=== PATIENT | female | born 2000 | race African-American/Black ===

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

== ENCOUNTER 2021-02-28 14:43 | Emergency (ER) | payer MEDICAID, OTHER ==
[2021-02-28] MEDS ORDERED: Bacitracin 1 PK ONE (14:54)
== END 2021-02-28 15:15 | disposition home or self-care (01) ==
LOC: MADERS 14:43
DX: S61.011A Laceration without foreign body of right thumb without damage to nail, initial encounter (principal); W45.8XXA Other foreign body or object entering through skin, initial encounter
CPT/HCPCS: 99282

== ENCOUNTER 2021-07-17 19:09 | Emergency (ER) | payer OTHER ==
[2021-07-17] MEDS ORDERED: Ondansetron ODT 4 MG TAB ONE (19:36)
[2021-07-17 20:00] LABS: Pregnancy Test - Urine (BHCG) Negative (Negative); Pregu Control Background? CLEAR/WHITE (CLR/WHITE); Pregu Control Bar Appear? YES (CONTROL BAR); Specific Gravity 1.018 (1.002-1.036)
== END 2021-07-17 20:15 | disposition home or self-care (01) ==
LOC: MADERS 19:09
DX: R11.2 Nausea with vomiting, unspecified (principal); R10.13 Epigastric pain
CPT/HCPCS: 81025; 99284; Q0162

== ENCOUNTER 2022-05-21 19:52 | Emergency (ER) | payer OTHER ==
[2022-05-21] MEDS ORDERED: Ibuprofen 600 MG TAB ONE (21:23)
[2022-05-21] MEDS ORDERED: traMADol HCl 50 MG TAB ONE (21:23)
== END 2022-05-21 22:29 | disposition home or self-care (01) ==
LOC: MADERS 19:52
DX: U07.1 COVID-19 (principal)
CPT/HCPCS: 99284; U0003; U0005

== ENCOUNTER 2023-08-04 12:18 | Emergency (ER) | payer OTHER ==
[2023-08-04 12:44] LABS: Bilirubin Negative (Negative); Blood, Urine Negative (Negative); Clarity Clear (Clear); Glucose, Urine (Dipstick) Negative (Negative); Ketone, Urine Negative (Negative); Leukocyte Negative (Negative); Nitrite Negative (Negative); Protein, Urine (Dipstick) Negative (Neg-Trace); Urobilinogen 0.2 mg/dL (Less than 2)
[2023-08-04 12:48] LABS: Pregnancy Test - Urine (BHCG) Negative (Negative); Pregu Control Background? CLEAR/WHITE (CLR/WHITE); Pregu Control Bar Appear? YES (CONTROL BAR); Specific Gravity 1.024 (1.002-1.036)
[2023-08-04 12:49] LABS: Specific Gravity, Urine 1.024 (1.002-1.036)
[2023-08-04 12:57] LABS: Bacteria/HPF Rare-Few HPF (None Seen); CAUTI Indications for Culture Dysuria,urgency,freq; Mucous/LPF 1+ LPF (<2+); RBC/HPF None Seen HPF (0-3); Urine Culture Reflex No No; WBC/HPF 0-3 HPF (0-3)
[2023-08-04] MEDS ORDERED: Lidocaine 1% (PF) 30 ML VIAL ONE (12:57)
[2023-08-04] MEDS ORDERED: cefTRIAXone (ROCEPHIN) 500 MG VIAL ONE (12:58)
[2023-08-05 13:53] LABS: Chlam.trachomatis by PCR,Urine DETECTED (NotDetected); GC N.gonorrhoeae PCR,UrineVOID Not Detected (NotDetected)
== END 2023-08-04 13:40 | disposition home or self-care (01) ==
LOC: MADERS 12:18
DX: N93.9 Abnormal uterine and vaginal bleeding, unspecified (principal); F17.290 Nicotine dependence, other tobacco product, uncomplicated
CPT/HCPCS: 81001; 81025; 87491; 87591; 99283; J0696; J2001

== ENCOUNTER 2023-09-25 08:13 | Emergency (ER) | payer OTHER, SELFPAY ==
[2023-09-25 08:34] LABS: Bilirubin Negative (Negative); Blood, Urine Negative (Negative); Clarity Clear (Clear); Glucose, Urine (Dipstick) Negative (Negative); Ketone, Urine Negative (Negative); Leukocyte Negative (Negative); Nitrite Negative (Negative); Protein, Urine (Dipstick) Negative (Neg-Trace); Specific Gravity, Urine 1.025 (1.005-1.030); Urobilinogen 0.2 mg/dL (Less than 2)
[2023-09-25 08:37] LABS: Pregnancy Test - Urine (BHCG) Negative (Negative); Pregu Control Background? CLEAR/WHITE (CLR/WHITE); Pregu Control Bar Appear? YES (CONTROL BAR); Specific Gravity 1.025 (1.002-1.036)
[2023-09-25 08:42] LABS: RBC/HPF 0-3 HPF (0-3)
[2023-09-25 08:43] LABS: Bacteria/HPF Rare-Few HPF (None Seen); CAUTI Indications for Culture Dysuria,urgency,freq; Squamous Epithelial 0-3 HPF (0-3); Urine Culture Reflex No No; WBC/HPF 0-3 HPF (0-3)
[2023-09-26 12:14] LABS: Chlamydia by PCR, Vaginal Swab Not Detected (NotDetected); GC by PCR, Vaginal Swab Not Detected (NotDetected)
== END 2023-09-25 09:15 | disposition home or self-care (01) ==
LOC: MADERS 08:13
DX: N89.8 Other specified noninflammatory disorders of vagina (principal); F17.210 Nicotine dependence, cigarettes, uncomplicated
CPT/HCPCS: 81001; 81025; 87480; 87491; 87510; 87591; 87660; 99283

== ENCOUNTER 2023-10-19 12:19 | Emergency (ER) | payer SELFPAY ==
[2023-10-19] MEDS ORDERED: Ondansetron ODT 4 MG TAB ONE (13:50)
[2023-10-19 13:58] LABS: Pregnancy Test - Urine (BHCG) Negative (Negative); Pregu Control Background? CLEAR/WHITE (CLR/WHITE); Pregu Control Bar Appear? YES (CONTROL BAR); Specific Gravity 1.025 (1.002-1.036)
[2023-10-19] MEDS ORDERED: Mag-Al Plus 1200 MG/1200 MG/120 MG/30 ML UDCUP ONE (14:20)
[2023-10-19] MEDS ORDERED: Lidocaine 2% Viscous 100 ML BOTTLE ONE (14:21)
== END 2023-10-19 14:58 | disposition home or self-care (01) ==
LOC: MADERS 12:19
DX: R11.2 Nausea with vomiting, unspecified (principal); K29.00 Acute gastritis without bleeding; F17.210 Nicotine dependence, cigarettes, uncomplicated
CPT/HCPCS: 81025; 99283; Q0162

== ENCOUNTER 2024-06-21 12:14 | Emergency (ER) | payer SELFPAY ==
[2024-06-21 13:00] LABS: Pregnancy Test - Urine (BHCG) POSITIVE (Negative); Pregu Control Background? CLEAR/WHITE (CLR/WHITE); Pregu Control Bar Appear? YES (CONTROL BAR); Specific Gravity 1.025 (1.002-1.036)
[2024-06-21 13:01] LABS: Bilirubin Negative (Negative); Blood, Urine Negative (Negative); Clarity Clear (Clear); Glucose, Urine (Dipstick) Negative (Negative); Ketone, Urine Trace mg/dL (Negative); Leukocyte Negative (Negative); Nitrite Negative (Negative); Protein, Urine (Dipstick) Negative (Neg-Trace); Specific Gravity, Urine 1.025 (1.005-1.030)
[2024-06-21 13:09] LABS: Bacteria/HPF Rare-Few HPF (None Seen); CAUTI Indications for Culture Dysuria,urgency,freq; Mucous/LPF 1+ LPF (<2+); RBC/HPF None Seen HPF (0-3); Urine Culture Reflex No No
[2024-06-22 20:52] LABS: Chlamydia by PCR, Vaginal Swab DETECTED (NotDetected); GC by PCR, Vaginal Swab Not Detected (NotDetected); Tric.vaginalis PCR,Vaginal Sw Not Detected (NotDetected)
== END 2024-06-21 13:43 | disposition home or self-care (01) ==
LOC: MADERS 12:14
DX: O20.9 Hemorrhage in early pregnancy, unspecified (principal); O99.331 Smoking (tobacco) complicating pregnancy, first trimester; Z3A.00 Weeks of gestation of pregnancy not specified
CPT/HCPCS: 81001; 81025; 87480; 87491; 87510; 87591; 87660; 87661; 99283

== ENCOUNTER 2024-07-15 18:39 | Emergency (ER) | payer OTHER, SELFPAY ==
[2024-07-15] MEDS ORDERED: Acetaminophen 500 MG TAB ONE (19:06)
[2024-07-15] MEDS ORDERED: Ondansetron ODT 4 MG TAB ONE (19:06)
== END 2024-07-15 19:54 | disposition home or self-care (01) ==
LOC: MADERS 18:39
DX: O99.511 Diseases of the respiratory system complicating pregnancy, first trimester (principal); O99.331 Smoking (tobacco) complicating pregnancy, first trimester; Z3A.13 13 weeks gestation of pregnancy
CPT/HCPCS: 87081; 87430; 94760; Q0162

== ENCOUNTER 2024-08-05 13:20 | Emergency (ER) | payer MEDICAID, OTHER ==
[2024-08-05 13:54] LABS: Bilirubin Negative (Negative); Blood, Urine Negative (Negative); Clarity Clear (Clear); Glucose, Urine (Dipstick) Negative (Negative); Ketone, Urine Negative (Negative); Leukocyte Negative (Negative); Nitrite Negative (Negative); Protein, Urine (Dipstick) Negative (Neg-Trace); Urobilinogen 0.2 mg/dL (Less than 2); pH, Urine 6.5 (5.0-9.0)
[2024-08-05 13:57] LABS: Specific Gravity, Urine 1.027 (1.002-1.036)
[2024-08-05 14:02] LABS: Bacteria/HPF Rare-Few HPF (None Seen); CAUTI Indications for Culture Pregnancy; RBC/HPF 0-3 HPF (0-3); Squamous Epithelial 0-3 HPF (0-3); WBC/HPF 0-3 HPF (0-3)
[2024-08-05 14:05] LABS: Urine Culture Reflex Yes Yes
[2024-08-05] MEDS ORDERED: Azithromycin 250 MG TAB ONE (14:07)
== END 2024-08-05 14:10 | disposition home or self-care (01) ==
LOC: MADERS 13:20
DX: O98.311 Other infections with a predominantly sexual mode of transmission complicating pregnancy, first trimester (principal); O99.331 Smoking (tobacco) complicating pregnancy, first trimester; Z3A.11 11 weeks gestation of pregnancy
CPT/HCPCS: 81001; 87086; 99283